=== PATIENT | female | born 1985 | race Caucasian/White ===

== ENCOUNTER 2022-07-02 16:05 | Emergency (ER) | payer OTHER ==
[2022-07-02 16:16] VITALS: BP 116/82; PULSE 70; RESP 18; TEMP 98.1; BMI 38.9
[2022-07-02] MEDS ORDERED: MECLIZINE HCL 25 MG TABLET (FP) PO ONE (18:27)
[2022-07-02] MEDS ORDERED: ONDANSETRON 4 MG/2 ML VIAL IVPUSH ONE (18:34)
[2022-07-02] MEDS ORDERED: MECLIZINE HCL 25 MG TABLET (FP) ONE (18:35)
[2022-07-02] MEDS ORDERED: LACTATED RINGERS SOLUTION 1000 ML INFUS.BAG IV ONE (18:42)
[2022-07-02 18:52] LABS: BASO % 0.7 % (0-2.0); EOS % 2.2 % (0-4.5); HEMATOCRIT 38.3 % (32.4-45.2); HEMOGLOBIN 12.8 GM/dL (10.7-15.3); LYMPH % 57.7 % (8-40); MCH 29.7 pg (25.7-33.7); MCHC 33.3 g/dl (32.0-36.0); MEAN PLT VOLUME 8.6 fl (7.5-11.1); MONO % 7.7 % (3.8-10.2); NEUT % 31.7 % (42.8-82.8); PLATELET COUNT 314 10^3/uL (134-434); RDW 13.7 % (11.6-15.6); WHITE BLOOD COUNT 5.2 K/mm3 (4.0-10.0)
[2022-07-02 18:56] LABS: EPI CELLS 32 /uL (0-25.1); HCG,QUALITATIVE URINE Negative; HYALINE CASTS 0 /uL (0-3.1); URINE APPEARANCE CLEAR; URINE BACTERIA 202 /uL (0-1359); URINE BILIRUBIN NEGATIVE (NEGATIVE); URINE COLOR YELLOW; URINE GLUCOSE (UA) NEGATIVE (NEGATIVE); URINE KETONE TRACE (NEGATIVE); URINE LEUK ESTERASE NEGATIVE (NEGATIVE); URINE NITRITE NEGATIVE (NEGATIVE); URINE PROTEIN NEGATIVE (NEGATIVE); URINE RBC 35 /uL (0-23.9); URINE UROBILINOGEN 0.2 mg/dL (0.2-1.0); URINE WBC 7 /uL (0-25.8)
[2022-07-02] MEDS ORDERED: ONDANSETRON *ODT* 4 MG TABLET ONE (19:05)
[2022-07-02 19:08] LABS: CALCIUM 8.9 mg/dL (8.5-10.1)
[2022-07-02 19:09] LABS: ALBUMIN 3.5 g/dl (3.4-5.0); BLOOD UREA NITROGEN 15.2 mg/dL (7-18)
[2022-07-02] MEDS ORDERED: ONDANSETRON 4 MG TABLET PO ONE (19:09)
[2022-07-02 19:12] LABS: CREATININE 0.6 mg/dL (0.55-1.3)
[2022-07-02 19:14] LABS: BILIRUBIN,TOTAL 0.1 mg/dL (0.2-1); TOT PROT 7.1 g/dl (6.4-8.2)
[2022-07-02] MEDS ORDERED: AZITHROMYCIN 250 MG TABLET PO ONE (20:13)
[2022-07-02] MEDS ORDERED: AZITHROMYCIN 500 MG TABLET ONE (20:48)
== END 2022-07-02 21:44 | disposition home or self-care (01) ==
LOC: JER 16:05
DX: R55 Syncope and collapse (principal); J18.9 Pneumonia, unspecified organism
CPT/HCPCS: 0241U-QW; 36415; 70450-TC; 71045-TC-FY; 80053; 81003; 84484; 84703; 85025; 93005; 93010; 99285-25

== ENCOUNTER 2023-03-10 15:49 | Inpatient (IN) | payer OTHER ==
[2023-03-10 15:58] VITALS: BMI 24.4
[2023-03-10] MEDS ORDERED: SODIUM CHLORIDE 0.9% 1000 ML INFUS.BAG IV ONE ×3 (16:34→19:05)
[2023-03-10] MEDS ORDERED: METOCLOPRAMIDE HCL INJECTION 10 MG/2 ML VIAL IVPUSH ONE (16:35)
[2023-03-10] MEDS ORDERED: METOCLOPRAMIDE HCL INJECTION 10 MG/2 ML VIAL ONE (16:49)
[2023-03-10 18:14] LABS: BASO % 0.5 % (0-2.0); EOS % 0.2 % (0-4.5); HEMATOCRIT 38.4 % (32.4-45.2); HEMOGLOBIN 13.2 GM/dL (10.7-15.3); LYMPH % 23.2 % (8-40); MCH 30.3 pg (25.7-33.7); MCHC 34.5 g/dl (32.0-36.0); MEAN PLT VOLUME 9.6 fl (7.5-11.1); NEUT % 66.1 % (42.8-82.8); PLATELET COUNT 265 10^3/uL (134-434); RBC 4.36 M/mm3 (3.60-5.2); WHITE BLOOD COUNT 5.6 K/mm3 (4.0-10.0)
[2023-03-10 19:05] LABS: CHLORIDE 105 mmol/L (98-107); SODIUM 141 mmol/L (136-145)
[2023-03-10 19:07] LABS: CALCIUM 9.4 mg/dL (8.5-10.1); CO2 24 mmol/L (21-32); GLUCOSE,RANDOM 87 mg/dL (74-106)
[2023-03-10 19:08] LABS: ALBUMIN 3.9 g/dl (3.4-5.0); BLOOD UREA NITROGEN 10.4 mg/dL (7-18)
[2023-03-10 19:11] LABS: CREATININE 0.5 mg/dL (0.55-1.3); SGOT/AST 30 U/L (15-37); SGPT/ALT 94 U/L (13-61)
[2023-03-10 19:12] LABS: BILIRUBIN,TOTAL 0.9 mg/dL (0.2-1); TOT PROT 7.5 g/dl (6.4-8.2)
[2023-03-10 19:13] LABS: ALK PHOS 70 U/L (45-117)
[2023-03-10 19:22] LABS: ANION GAP 12 MMOL/L (8-16); POTASSIUM 2.9 mmol/L (3.5-5.1)
[2023-03-10 19:45] LABS: EPI CELLS 30 /uL (0-25.1); HYALINE CASTS 15 /uL (0-3.1); URINE APPEARANCE CLEAR; URINE BILIRUBIN 2+ (NEGATIVE); URINE COLOR DK YELLOW; URINE GLUCOSE (UA) NEGATIVE (NEGATIVE); URINE KETONE 4+ (NEGATIVE); URINE LEUK ESTERASE 1+ (NEGATIVE); URINE NITRITE POSITIVE (NEGATIVE); URINE PROTEIN 2+ (NEGATIVE); URINE WBC 134 /uL (0-25.8)
[2023-03-10 20:12] LABS: URINE BACTERIA 654.1 /uL (0-1359); URINE RBC 29.3 /uL (0-23.9)
[2023-03-10] MEDS ORDERED: ONDANSETRON *ODT* 4 MG TABLET SL ONE (21:01)
[2023-03-10] MEDS ORDERED: ONDANSETRON *ODT* 4 MG TABLET ONE (21:08)
[2023-03-10 21:35] LABS: POTASSIUM 2.6 mmol/L (3.5-5.1)
[2023-03-10 22:20] VITALS: PULSE 69
[2023-03-10] MEDS ORDERED: HEPARIN NA (PORCINE) 5,000 UNITS/ML 1ML VIAL SQ ONE (23:40)
[2023-03-11] MEDS ORDERED: ONDANSETRON 4 MG/2 ML VIAL IVPUSH PRN (00:48)
[2023-03-11] MEDS: KCL 10 MEQ IVPB 10 MEQ/100 ML INFUS.BAG IVPB SCH ×6 (01:42→11:41)
[2023-03-11] MEDS ORDERED: KCL 10 MEQ IVPB 10 MEQ/100 ML INFUS.BAG IVPB ONE ×2 (01:50→04:19)
[2023-03-11] MEDS ORDERED: SODIUM CHLORIDE 1,000 ML with POTASSIUM CHLORIDE 40 MEQ IV SCH (02:00)
[2023-03-11] MEDS ORDERED: diphenhydrAMINE HCL 25 MG CAPSULE (FP) PO ONE (05:08)
[2023-03-11] MEDS ORDERED: CEFTRIAXONE 1 GM/50 ML BAG ONE ×2 (05:11→10:42)
[2023-03-11] MEDS: CEFTRIAXONE 1 GM in DEXTROSE 5%-WATER - 50 ML IVPB SCH ×2 (05:12→10:35)
[2023-03-11] MEDS: diphenhydrAMINE HCL 25 MG CAPSULE (FP) PO SCH ×2 (05:12→05:24)
[2023-03-11] MEDS ORDERED: PYRIDOXINE HCL (B-6) 50 MG TABLET (FP) PO SCH (06:00)
[2023-03-11 08:09] VITALS: RESP 18
[2023-03-11 08:09] LABS: POTASSIUM 3.1 mmol/L (3.5-5.1)
[2023-03-11 08:13] LABS: BLOOD UREA NITROGEN 6.1 mg/dL (7-18)
[2023-03-11 08:15] LABS: CALCIUM 8.1 mg/dL (8.5-10.1); CREATININE 0.3 mg/dL (0.55-1.3)
[2023-03-11] MEDS ORDERED: ENOXAPARIN NA (PORCINE) 40 MG/0.4 ML DISP.SYRIN SQ SCH (10:00)
[2023-03-11] MEDS ORDERED: KCL 10 MEQ IVPB 30 MEQ/300 ML INFUS.BAG IVPB ONE (10:40)
[2023-03-11 11:04] VITALS: BP 85/49; TEMP 97.9
== END 2023-03-11 14:33 | disposition home or self-care (01) | DRG 566 ==
LOC: JER 15:49 → JERBED 22:19
PROVIDERS: ADMIT Internal Medicine; ATTEND Internal Medicine
DX: O21.0 Mild hyperemesis gravidarum (principal); Z3A.09 9 weeks gestation of pregnancy; E86.0 Dehydration; E87.6 Hypokalemia; O99.280 Endocrine, nutritional and metabolic diseases complicating pregnancy, unspecified trimester
CPT/HCPCS: 36415; 80048; 80053; 81003; 84132; 84702; 85025; 87086; 93005; 93010; 99285-25; Q0162